=== PATIENT | male | born 1985 | race Two or more races ===

== ENCOUNTER 2021-11-12 10:53 | Outpatient (CLI) | payer BC, SELFPAY ==
[2021-11-12 12:57] LABS: Hematocrit 42.8 % (42.0-52.0); Hemoglobin 13.6 g/dL (14.0-18.0); Mean Corpuscular HGB Conc 31.8 g/dl (32-36); Mean Corpuscular Hemoglobin 26.5 pg (26-34); Mean Corpuscular Volume 83.3 fl (80-100); Mean Platelet Volume 11.7 fl (7.4-10.4); Platelet Count Result 199 k/mm3 (150-375); Red Blood Count 5.14 M/mm3 (4.6-6.20); Red Cell Distribution Width 13.5 % (11.5-14.5); White Blood Count 6.3 K/mm3 (4.5-10.0)
[2021-11-12 13:12] LABS: Hemoglobin A1C 5.3 % (<5.7)
[2021-11-12 13:21] LABS: Rheumatoid Factor < 8.6 IU/ML (<12)
[2021-11-12 13:30] LABS: LDL Cholesterol Direct 84 mg/dL
[2021-11-12 13:32] LABS: Alanine Aminotransferase 30 U/L (6-50); Albumin Level 4.3 g/dL (3.5-5.1); Alkaline Phosphatase 67 U/L (38-126); Anion Gap 8 mmol/L (8-16); Aspartate Amino Transferase 31 U/L (17-59); Bilirubin,Total 0.4 mg/dL (0.2-1.3); Blood Urea Nitrogen 15 mg/dL (9-20); Calcium 9.1 mg/dL (8.4-10.2); Carbon Dioxide 24 mmol/L (22-30); Chloride 107 mmol/L (98-107); Cholesterol 173 mg/dL (0-200); Estimated Glomerular Filt Rate > 60; Glucose 87 mg/dL (65-110); HDL Direct 57 mg/dL; Potassium 4.7 mmol/L (3.4-5.0); Sodium 139 mmol/L (137-145); Triglycerides 92 mg/dL (<150)
[2021-11-12 13:37] LABS: Erythrocyte Sedimentation Rate 3 mm/hr (0-20)
[2021-11-12 14:02] LABS: Free T4 Free Thyroxine 1.02 ng/mL (0.78-2.19); Vitamin D 25 Hydroxy 25.9 ng/mL
[2021-11-12 20:03] LABS: Creatinine Urine 161.6 mg/dL
[2021-11-12 20:15] LABS: MALB Creatinine Ratio < 3.7 mg/g (0-30); Microalbumin Urine Random < 6.0 mg/L (0-16.7)
[2021-11-16 19:38] LABS: Lyme Disease Ab (IgM), Blot Negative (Negative); Lyme Disease Ab(IgG), Blot Negative (Negative)
== END 2021-11-12 10:54 | disposition home or self-care (01) ==
PROVIDERS: PCP Emergency Medicine; Visit Provider Emergency Medicine
DX: Z00.00 Encounter for general adult medical examination without abnormal findings (principal); K21.00 Gastro-esophageal reflux disease with esophagitis, without bleeding
CPT/HCPCS: 36415; 80053; 80061; 82043; 82306; 82785; 83036; 84439; 84443; 85027; 85652; 86003; 86038; 86430; 86617

== ENCOUNTER 2024-03-04 02:02 | Day surgery (SDC) | payer BC, SELFPAY ==
[2024-02-23 13:56] VITALS: BMI 29.5
[2024-03-04 13:25] VITALS: BP 131/89; PULSE 57; RESP 18; TEMP 36; O2SAT 100; BMI 29.7
[2024-03-04] MEDS: LACTATED RINGERS 1,000 ML 150 ML IV CONT (13:35)
--- NOTE | 2024-03-04 14:16 | WPDANESEPPF ---
Anes - Initial Pre Proc Eval Procedure: Operation Date: 03/04/24 14:00 Proposed Procedures p Esophagogastroduodenoscopy - Shen Chapman MD Date/Time: 03/04/24 14:16 Surgeon: Shen Chapman MD Pre Op Diagnosis: GERD Patient Data Age: 38 Gender: M Height: 1.73 m Weight: 88.7 kg Last Vital Signs Temp 36.0 C L 03/04/24 13:25 Pulse 57 L 03/04/24 13:25 Resp 18 03/04/24 13:25 BP 131/89 03/04/24 13:25 Pulse Ox 100 03/04/24 13:25 O2 Del Method Room Air 03/04/24 13:25 Allergies Allergy/AdvReac Type Severity Reaction Status Date / Time latex Allergy Intermediate Rash Verified 03/04/24 13:24 Home Medications ?Medication ?Instructions ?Recorded ?Confirmed ?Type No Home Medications 02/23/24 03/04/24 History Patient hx anesthesia problems: none Family hx anesthesia problems: none Results Review: All pre-operative results and documents have been reviewed as part of the pre-operative evaluation. [facility] Social History Social History Smoking status: Never smoker Alcohol intake: never Substance use: never Substance use type: does not use Living arrangements: with family Spiritual care concerns: No Anes - Eval Final PreProcedure Day of Procedure 03/04/24 14:16 Patient weight: overweight Heart: regular rate and rhythm Lungs: clear to auscultation Airway: Mallampati scale class II Neurological: alert and oriented Last oral intake: >/= 8 hours ASA classification: II Emergent: no Anesthetic plan: proceed Anesthesia type and monitoring: general GIVS Results Review: All pre-operative results and documents have been reviewed as part of the pre-operative evaluation. Informed Consent: The patient's anesthetic plan and its attendant risks and benefits were discussed with the patient/family/POA. Questions were solicited and answers provided to the satisfaction of the patient/family/POA.
--- NOTE | 2024-03-04 14:33 | PM.HPGS ---
History of Present Illness History of Present Illness Consent: Risks, benefits, and alternatives have been discussed and questions answered. Patient agrees to proceed with procedure. Chief complaint: GERD Narrative: Garret Lam is a 38 year old male with gastritis in 2019 when he was in [place] (reviewed) and biopsies apparently showed ? metaplasia, he is not taking medications but he was told to repeat EGD in 2 years Review of Systems Review of Systems: All systems reviewed & are unremarkable except as noted in HPI and below PMFSH Past Medical History Medical History (Updated 03/04/24 @ 14:35 by Shen Chapman MD) Gastritis Social History Social History Smoking status: Never smoker Alcohol intake: never Substance use: never Substance use type: does not use Living arrangements: with family Spiritual care concerns: No Meds Home Medications and Allergies Home Medications ?Medication ?Instructions ?Recorded ?Confirmed ?Type No Home Medications 02/23/24 03/04/24 History Allergies Allergy/AdvReac Type Severity Reaction Status Date / Time latex Allergy Intermediate Rash Verified 03/04/24 13:24 Vital Signs Vital Signs - 24 hr 03/04/24 13:25 Temperature 96.8 F L Pulse Rate 57 L Respiratory Rate 18 Blood Pressure 131/89 Pulse Oximetry 100 Oxygen Delivery Room Air Exam Const: General: comfortable and no acute distress HENMT: Face/Nose/Sinus: Normal nares present Eyes: General: appearance normal, both eyes and all related structures Neck: Neck: no JVD Resp: Auscultation: clear to auscultation bilaterally Cardio: Rate: regular rate Rhythm: regular rhythm GI: Inspection: non-distended GI Palp: Yes Soft to palpation Skin: General skin exam: normal color Neuro: General: gait normal Speech: normal speech Extrem: General: normal to inspection Psych: Mental Status: mental status grossly normal Assessment and Plan Assessment and plan (1) Gastritis: Code(s): K29.70 - Gastritis, unspecified, without bleeding Status: Acute Assessment and Plan: egd with bx
[2024-03-04 14:45] VITALS: BP 112/66; PULSE 80; RESP 18; O2SAT 94
[2024-03-04 14:55] VITALS: BP 114/65; PULSE 80; RESP 20; O2SAT 100
[2024-03-04 15:05] VITALS: BP 124/77; PULSE 67; RESP 24; O2SAT 100
== END 2024-03-04 15:20 | disposition home or self-care (01) ==
PROVIDERS: PCP Emergency Medicine; Visit Provider Internal Medicine Gastroenterology
PROC: 0DJ08ZZ Inspection of Upper Intestinal Tract, Via Natural or Artificial Opening Endoscopic (ICD-10-PCS; CPT 43235; principal; 2024-03-04 14:00)
DX: K29.70 Gastritis, unspecified, without bleeding (principal)
CPT/HCPCS: 43239; 88305; J2003; J2704; J7120